=== PATIENT | female | born 1965 | race Caucasian/White ===

== ENCOUNTER 2022-09-16 10:17 | Inpatient (IN) | payer MEDICARE, MEDICAID ==
[~2022-09-16] VITALS: Ht 157.5 cm; Wt 182.0 kg
[~2022-09-16 10:17] MED LIST: ALLEGRA ALLERGY60 MG PO; CIPROFLOXACIN500 MG PO; LISINOPRIL20 MG PO
[2022-09-16] MEDS ORDERED: VENTOLIN HFA18 GM INH (14:45)
[2022-09-16] MEDS ORDERED: WOMEN'S DAILY1 EACH PO (14:46)
[2022-09-16] MEDS ORDERED: MAGOX 400400 MG PO (14:46)
[2022-09-16] MEDS ORDERED: FIBER0.52 GM PO (14:47)
[2022-09-16] MEDS ORDERED: BLACK ELDERBER1 EACH PO (14:47)
[2022-09-16] MEDS ORDERED: CRANBERRY500 M3 PO (14:48)
--- NOTE | 2022-09-16 15:15 | NUR ---
BEDSIDE REPORT RECEIVED, CARE OF PT ASSUMED AT THIS TIME. PT MOVED OVER FROM STRETCHER TO BED WITH USE OF HOVER ROME AND FOUR NURSE ASSIST. PT HEART RATE UP INTO THE 140S WITH ACTIVITY. PT SKIN CLEAN DRY AND INTACT. LYMPHEDEMA TO LOWER EXTREMITIES NOTED. PT ALSO HAS 2+ PITTING PEDAL EDEMA. SKIN UNDER FOLDS CLEAN DRY AND INTACT. LUNGS SOUND CLEAR THROUGHOUT. PLAN OF CARE FOR DAY ESTABLISHED. CALL LIGHT [facility] REH[facility]. WILL CONTINUE TO MONITOR.
--- NOTE | 2022-09-16 15:38 | NUR ---
CASHIER AND WAITER/WAITRESS IN ROOM AT THIS TIME PERFORMING ECHOCARDIOGRAM. SISTER AT BEDSIDE. IV DILTAZEM INFUSING (SEE FLOWSHEET). CALL LIGHT WITHIN REACH. WILL CONTINUE TO MONITOR.
--- NOTE | 2022-09-16 15:51 | NUR ---
DILTAZEM DRIP INCREASED TO 10 MG/HR TO MAINTAIN HEART RATE LESS THAN 100 (SEE EMAR).
--- NOTE | 2022-09-16 16:16 | NUR ---
PT EATING SANDWHICH AND REPORTS NAUSEA. PT STATES THAT THE OPENING CREATED FROM GASTRIC BIPASS SURGERY IS TOO SMALL AND SHE OFTEN GETS NAUSEATED WHEN SHE EATS TOO QUICKLY. DENIES NEED FOR PAIN MEDICATION AT THIS TIME.
--- NOTE | 2022-09-16 17:30 | NUR ---
PT INCONTINENT OF URINE. PURWICK NOT WORKING. PERICARE COMPLETED. PT HEART RATE UP INTO THE 140S WITH ACTIVITY IN THE BED. DILTAZEM DRIP INCREASED TO 15 MG/HR. DR HARRISON UPDATED. ORDER FOR HARRINGTON CATHETER RECEIVED.
--- NOTE | 2022-09-16 19:12 | NUR ---
PT MOVED FROM REGULAR BED TO BARIATRIC BED. PT ABLE TO STAND WITH STANDY BY ASSIST AND CANE. PT TRANSFERED PT HEART RATE IN THE 130-140 WITH ACTIVITY AND RESPIRATIONS IN THE MID 30S AND PT VISIBLY SHORT OF BREATH. PT NOW RESTING IN BARIATRIC BED. HEART RATE IN THE 80S. PT DENIES PAIN. CALL LIGHT WITHIN REACH AND PT'S NIECE REMAINS AT BEDSIDE.
--- NOTE | 2022-09-16 19:17 | EKG ---
[facility] [address] [place], [place] [address] Signed Atrial flutter with 2:1 AV conduction Minimal voltage criteria for LVH, may be normal variant ( Abdiel product ) Nonspecific ST abnormality Abnormal ECG No previous ECGs available Confirmed by RENARD HARRISON MD ([id number]) on 09/16/2022 7:16:59 PM Electronically Signed By: RENARD HARRISON MD 09/16/221916 PATIENT NAME: CORRY URIBE Electrocardiogram DATE OF : 67 PHYSICIAN: RENARD HARRISON MD REPORT #: [id number] REPORT IS CONFIDENTIAL AND NOT TO BE RELEASED WITHOUT AUTHORIZATION
--- NOTE | 2022-09-16 20:00 | NUR ---
Beside report received from outgoing nurse, NATACHA Mejia. Initial assessment performed with no critical measures necessary. All vital signs stable with Cardizem drip infusing via PIV at 15 mg/hr. No indications or complaints of respiratory distress or fever. Patient does complain of headache and right leg pain. Will administer pain medication with nighttime meds and continue to monitor.
--- NOTE | 2022-09-16 22:00 | NUR ---
Patient says that headache has been resolved and she has minimal leg pain. Cardizem drip titrated down to 10 mg/hr. All vital signs stable.
--- NOTE | 2022-09-17 | NUR ---
Patient reassessment performed with no acute changes since previous assessment unless noted. All vital signs stable with no indications or complaints of respiratory distess, fever or pain. Patient does complain of not being able to rest. Cardizem drip titrated down to 7.5 mg/hr. Will continue to monitor.
--- NOTE | 2022-09-17 02:30 | NUR ---
Patient administered tylenol for complaints of headache along with a one-time dose of PO ativan to help her sleep. All vital signs stable with Cardizem drip titrated down to 5 mg/hr.
--- NOTE | 2022-09-17 04:00 | NUR ---
Repeat assessment performed with no acute changes since initial assessment unless noted. All vital signs stable with no indications or complaints of respiratory distress, fever or pain. Cardizem drip titrated down to 2.5 mg/hr.
--- NOTE | 2022-09-17 06:00 | NUR ---
Patient resting comfortably with Cardizem drip infusing at 2.5 mg/hr. All vital signs stable with no indications of respiratory distress, fever or pain.
--- NOTE | 2022-09-17 07:25 | NUR ---
RECEIVED REPORT FROM ANTONIO MANZANO. ASSUMING CARE OF PT. PT RESTING IN BED, CALL LIGHT WITHIN REACH. PT ON BARIATRIC BED. DILTIAZEM DRIP AT 2.5 IN LEFT AC IV. RAC IV SALINE LOCKED. PT REPOSITIONED UP IN BED FOR COMFORT. VS OBTAINED AND INTAKE/OUTPUT COLLECTED.
--- NOTE | 2022-09-17 07:53 | NUR ---
PT COMPLAINT OF NAUSEA AND HEADACHE. MEDICATION PROVIDED.
--- NOTE | 2022-09-17 08:40 | NUR ---
DILTIAZEM DRIP TRITRATED UP DUE TO PT HR 136 WHILE RESTING IN BED.
--- NOTE | 2022-09-17 10:06 | NUR ---
PT RESTING IN BED VISITING WITH FATHER. PT DENIES PAIN OR DISCOMFORT. CARDIAC MEDICATION GIVEN DUE TO ELEVATED HR.
--- NOTE | 2022-09-17 10:55 | NUR ---
INTO SEE PATIENT. PATIENT LIVES IN A HOME IN [place]. SHE IS CURRENTLY BEEN LIVING ALONE AND CARING FOR HERSELF. HER SISTER SHAMEKA IS AVAILABLE TO ASSIST HER IF NEEDED. PATIENT STATES SHE DOES NOT DRIVE, SHE USES THE WC [place] IF HER SISTER IS UNAVAILABLE TO TRANSPORT HER. PATIENT HAS A WALKER, CANE AND WC AT HOME. SHE NOTES SHE MOSTLY USES HER CANE FOR MOBILITY. SHE STATES SHE IS ABLE TO MOVE AROUND HER HOME AND IS ABLE TO TAKE CARE OF HERSELF, BUT DOES NOT LEAVE HER HOME OFTEN. PATIENT IS ESTABLISHED WITH DR. LIU, BUT HAS NOT SEEN HIM IN SOMETIME. DISCUSSED RESOURCES THAT WOULD BE HELPFUL TO PATIENT. AVISED THAT SHE HAS ACCESS TO FREE TRANSPORTATION IT CAN BE EXPENSIVE TO PAY FOR THE WC [place]. PATIENT IS INTERESTED IN HOME HEALTHER SERVICES WHEN DISCHARGE. DISCUSSED HOME HEALTH FOR PT AND FPC IF NEEDED. PROVIDED INFORMATION FOR [facility] AND ENCOURAGED THE PATIENT TO CALL TO REQUEST SERVICES. PATIENT ALSO PROVIDED INFORMATION FOR MEALS ON WHEELS [employer]IA [employer] WHICH PATIENT FEELS MAY BE HELPFUL. NO CONCERNS FROM THE PATIENT REGARDING DISCHARGE AT THIS TIME, WILL CONTINUE TO CHECK IN WITH PATIENT DURING HER VISIT.
--- NOTE | 2022-09-17 11:39 | NUR ---
PT DILTIAZEM DRIP PLACED ON STAND BY, PT HR 69.
--- NOTE | 2022-09-17 13:17 | NUR ---
PT RESTING IN BED PLAYING ON TABLET. CALL LIGHT WITHIN REACH, BEDRAIL UP FOR SAFETY AND PT BELONGINGS AT BEDSIDE.
--- NOTE | 2022-09-17 14:30 | NUR ---
PT RESTING IN BED WITH EYES CLOSED, RESPIRATIONS EVEN AND UNLABORED. BLANKET COVERING PT. PT HAS CALL LIGHT WITHIN REACH AND BEDRAILS UP FOR SAFETY.
[2022-09-17] MEDS ORDERED: ADULT LOW DOSE81 MG PO (15:29)
[2022-09-17] MEDS ORDERED: ALEVE220 MG PO (15:29)
[2022-09-17] MEDS ORDERED: IBU-200200 MG PO (15:29)
--- NOTE | 2022-09-17 15:31 | NUR ---
MED REC COMPLETE
--- NOTE | 2022-09-17 16:20 | NUR ---
IN ROOM TO CHECK ON PT, PT COMPLAINT OF HEADACHE. MEDICATION PROVIDED. PT SISTER AT BEDSIDE. PT TALKING AND LAUGHING WITH FAMILY. AWARE OF WAIT FOR DINNER. DENIES FURTHER NEEDS AT THIS TIME.
--- NOTE | 2022-09-17 18:37 | NUR ---
PT ARRIVED TO MEDICAL FLOOR ROOM 125 VIA BED. PT IS ALERT AND ORIENTED. VITALSS TAKEN AND STABLE. PT REPORTS CHRONIC HEADACHE AT 09/15. TYLENL GIVEN BEFORE TRANSFER. CALL LIGHT IN REACH. BED NOT WORKING. CALL MADE TO RAYRAY
--- NOTE | 2022-09-17 19:15 | NUR ---
RECEIVED REPORT FROM AJ MANZANO. PT LAYING IN ARJO BED W/LEE MANZANO DROPHAMMER OPERATOR AT BEDSIDE ON PHONE W/Royal [place] TECH REP. UNABLE TO TROUBLESHOOT BED AT THIS TIME, PT 2PA W/FWW TO RECLINER TO BE CHANGED TO REGULAR FLOOR BED. TOLERATED WELL AND HR MAX WAS 130 AT THIS TIME. BACKSIDE IS C/D/I, NO SIGNS OF SKIN BREAKDOWN AT THIS TIME. CALL LIGHT WITHIN REACH, SISTER AT BEDSIDE, NO FURTHER NEEDS AT THIS TIME.
--- NOTE | 2022-09-17 22:09 | NUR ---
IN PT ROOM FOR ASSESSMENT, VS, AND I/O'S. PT RESTING IN BED. PT REPORTS PAIN OF 4/10 HEADACHE AT THIS TIME, PRN TYLENOL GIVEN. PT STATES UNEASY FEELING BUT NOT QUITE NAUSEA AT THIS TIME, NO NEED FOR PRN ZOFRAN. PT ON TELE AND PT FLUCTUATES BETWEEN REGULAR AND AFIB RHYTHM, RATE 70-80'S AT REST. PT STATES HOSPITAL BED FEELS MUCH BETTER ON KNEES AND NO KNEE PAIN WHILE IN THIS BED. LUNG SOUNDS ARE CLEAR THROUGHOUT, PULSES PRESENT THROUGHOUT (IRREGULAR), ACTIVE BOWEL TONES X4. HARRINGTON IN PLACE AND DRAINING TO GRAVITY, CARE PERFORMED. PT REPORTS NO DIZZINESS, N/T, SOB AT THIS TIME. REDNESS/DRY SKIN ON RT CALF, REST IS C/D/I, NO SIGN OF BREAKDOWN. CALL LIGHT WITHIN REACH, NO FURTHER NEEDS AT THIS TIME.
--- NOTE | 2022-09-18 01:10 | NUR ---
PT RESTING W/EYES CLOSED. RESPIRATIONS ARE EVEN AND UNLABORED, NO SIGNS OF DISTRESS. CALL LIGHT WITHIN REACH. PT APPEARS COMFORTABLE AT THIS TIME.
--- NOTE | 2022-09-18 02:50 | NUR ---
IN PT ROOM FOR LIFTER/DRIVER AND ASSESSMENT. PT REPORTS NAUSEA AT THIS TIME. PT IS ON TELE AND RATE AT THIS TIME IS SINUS RHYTHM W/HR IN LOW 90'S. PT IS A&O X4. PT REPORTS MINOR HEADACHE AT THIS TIME. PRN GIVEN FOR NAUSEA. NO ACUTE CHANGES FROM PREVIOUS ASSESSMENT. 10 MIN POST PRN ZOFRAN PT REPORTS NO NAUSEA AND STATES SHE IS GOING TO TRY AND GET SOME SLEEP. CALL LIGHT WITHIN REACH, NO FURTHER NEEDS AT THIS TIME. HARRINGTON DRAINING TO GRAVITY.
--- NOTE | 2022-09-18 05:00 | NUR ---
PT RESTING W/EYES CLOSED. RESPIRATIONS ARE EVEN AND UNLABORED, NO SIGNS OF DISTRESS. TELE SHOWS HR 70-80'S AT THIS TIME, PT IN AFIB RHYTHM AT THIS TIME. CALL LIGHT WITHIN REACH. HARRINGTON DRAINING TO GRAVITY.
--- NOTE | 2022-09-18 06:16 | NUR ---
IN PT ROOM D/T NAUSEA AND HEADACHE. PT REPORTS 6/10 HEADACHE PAIN, PRN TYLENOL GIVEN. PT REPORTS NAUSEA BUT STATES MANAGEABLE AT THIS TIME. CALL LIGHT WITHIN REACH, NO FURTHER NEEDS AT THIS TIME.
--- NOTE | 2022-09-18 06:25 | NUR ---
IN PT ROOM. PT WILLING TO GET OUT OF BED TO CHAIR. NEW CHAIR BROUGHT IN ROOM. PT ASSISTED OUT OF BED AND UP TO EDGE OF CHAIR 1 PA W FWW. THIS MOVEMENT WAS VERY HARD FOR PT TO ACCOMPLISH, BUT THE PT WAS NOT ALLOWING MUCH ASSISTANCE. RN IN ROOM TO HELP ASSIST PT BACK TO BED PT IS NO COMFORTABLE IN THE CHAIR. REFINERY PIPELINE OPERATOR ALSO NOTIFIED TO COME HELP WE ARE NOT ABLE TO PROVIDE ENOUGH ASSISTANCE FOR THE PT. PT WOULDN'T ALLOW US TO HELP MUCH, PT NOW BACK IN BED. ICE WATER REFRESHED. RN IN ROOM TO ASSIST W CATHETER, NO FURTHER NEEDS. CALL LIGHT WITHIN REACH
--- NOTE | 2022-09-18 06:50 | NUR ---
IN PT ROOM D/T HR FLUCTUATING BETWEEN 115-133. PT SITTING UP IN CHAIR AT THIS TIME. THIS RN, SCRIBING MACHINE OPERATOR, AND FAMILY HELPER ASSISTED PT BACK TO BED. PT SUSTAINED HR AROUND 133-135, PT REPORTS HEART FLUTTERING AND RACING SENSATION AT THIS TIME IN CHEST. PRN METOPROLOL GIVEN AFTER W/CONSULTATION OF SCRIBING MACHINE OPERATORNATAHCA GAN. PT NOW RESTING IN BED W/LAB IN ROOM FOR DRAW. CALL LIGHT WITHIN REACH, NO FURTHER NEEDS AT THIS TIME.
--- NOTE | 2022-09-18 07:30 | NUR ---
REPORT RECEIVED FROM SYDNEY MANZANO, ALL QUESTIONS ANSWERED. PT RESTING QUIETLY IN BED WITH EYES CLOSED RESPIRATIONS EVEN AND UNLABORED. CALL LIGHT IN REACH.
--- NOTE | 2022-09-18 10:36 | NUR ---
PT UP WALKING WITH PHYSICAL THERAPY, HEART RATE 144. PT BACK TO BED, HEART RATE SUSTAINING 130s-140. BP 131/[address] HARRISON, VERBAL ORDER TO GIVEN FOR PRN DOSE OF METOPROLOL. PT IN BED, STATES SHE CAN FEEL HER HEART "POUNDING" OTHERWISE DENIES DIZZINESS OR LIGHT HEADEDNESS. PT VISITING WITH FAMILY. PRN METOPROLOL ADMINISTERED.
--- NOTE | 2022-09-18 14:40 | NUR ---
AFTERNOON ASSESSMENT COMPLETE. NO CHANGES FROM MORNING ASSESSMENT. PT DENIES NEEDS AT THIS TIME. CALL LIGHT IN REACH, FAMILY AT BEDSIDE.
--- NOTE | 2022-09-18 16:20 | NUR ---
PT C/O HEADACHE, GIVEN PRN TYLENOL. DENIES FURTHER NEEDS AT THIS TIME. CALL LIGHT IN REACH.
--- NOTE | 2022-09-18 18:28 | NUR ---
PT UP TO COMMODE WITH ONE PERSON ASSIST AND FWW, HEART RATE 130. PT BACK TO BED, PT C/O DIZZINESS THAT RESOLVED WITH REST. HEART RATE TO 80-90S WITH REST.
--- NOTE | 2022-09-18 20:01 | NUR ---
REC'D BEDSIDE REPORT FROM DAY NURSE. PT AWAKE, SITTING UP IN BED. AOX4. NAD, NO C/O. WILL CONTINUE TO MONITOR AND FOLLOW POC.
--- NOTE | 2022-09-19 06:27 | NUR ---
PT IN BED. VITALS AND IS AND OS COMPLETE. PT DECLINED ANY NEEDS AT THIS TIME. CALL LIGHT WITHIN REACH
--- NOTE | 2022-09-19 07:17 | NUR ---
PT WITH NO ACUTE OVERNIGHT EVENTS. PT HEART RATE WELL-CONTROLLED WITH CURRENT REGIMEN. PT WITH NO C/O. VSS. BEDSIDE HANDOFF REPORT GIVEN TO DAY NURSE.
--- NOTE | 2022-09-19 07:24 | NUR ---
REPORT RECEIVED FROM ELVIA MANZANO, ALL QUESTIONS ANSWERED. PT LYING AWAKE IN BED. C/O DIZZINESS AND HEADACHE. BP 137/84 HEART RATE 77. PT GIVEN PRN TYLENOL. DENIES FURTHER NEEDS AT THIS TIME. CALL LIGHT IN REACH.
--- NOTE | 2022-09-19 09:56 | NUR ---
PT IN BED, VITALS AND IS AND OS COMPLETE. HARRINGTON EMPTIED. NO FURTHER NEEDS. CALL LIGHT WITHIN REACH
--- NOTE | 2022-09-19 10:44 | NUR ---
IN ROOM FOR ROUNDING, PT STATES "THE ROOM IS SPINNING, IM HOT AND I FEEL NAUSEOUS AND HEAVY" PT BP 126/80, HEART RATE 68. PT REQUESTS PRN CAROL, SEE EMAR.
--- NOTE | 2022-09-19 11:55 | NUR ---
PT UP TO COMMODE AND BACK TO BED. HEART RATE UP TO 128. PT DENIES DIZZINESS. CALL LIGHT IN REACH.
--- NOTE | 2022-09-19 14:21 | NUR ---
pt in bed. vitals and is and os complete. pt declined restroom needs. no further needs at this time. call light within reach
--- NOTE | 2022-09-19 19:43 | NUR ---
REPORT RECEIVED FROM DAY SHIFT RN. PT LYING IN BED ALERT AND ORIENTED. DENIES NEEDS. WHITE BOARD UPDATED. CALL LIGHT IN REACH.
--- NOTE | 2022-09-19 20:30 | NUR ---
EVENING ASSESSMENT COMPLETE. SCHEDULED MEDS ADMIN PER EMAR. PT REPORTS 5/10 HEADACHE PAIN AND NAUSEA. PRN FOR PAIN AND N/V ADMIN PER EMAR. TELE #[address] HR IRREGULAR. RATE 60'S AT REST. PT DENIES QUESTIONS OR CONCERNS. CALL LIGHT IN REACH.
--- NOTE | 2022-09-19 23:30 | NUR ---
PT RESTING IN BED WITH EYES CLOSED. RESPIRATIONS EVEN. CALL LIGHT IN REACH.
--- NOTE | 2022-09-19 23:50 | NUR ---
PT UP TO BR AND BACK TO BED. HR UP TO 130 WITH ACTIVITY. ICE WATER PROVIDED. CALL LIGHT IN REACH.
--- NOTE | 2022-09-20 01:48 | NUR ---
SCHEDULED MEDS ADMIN. PT DENIES DIZZINESS. REPORTS HEADACHE PAIN TOLERABLE. SLIGHTLY NAUSEOUS BUT DECLINES PRN FOR N/V WHEN OFFERED. NO NEEDS AT THIS TIME. CALL LIGHT IN REACH.
--- NOTE | 2022-09-20 05:20 | NUR ---
PT UP TO BR WITH FWW AND SBA TO VOID. BACK TO BED, JEY WELL. HR UP TO 130. PT DENIES DIZZINESS WITH ACTIVITY. VS AND I&O COMPLETE. PT DENIES NEEDS. CALL LIGHT IN REACH.
--- NOTE | 2022-09-20 07:30 | NUR ---
report from kwame rn, pt resting eyes closed.call light in reach.
--- NOTE | 2022-09-20 08:40 | NUR ---
PT IN BED, REPORTS SHE WANTS TO LEAVE TODAY FOR HOME, WILL NEED HER SISTER TO GET HER WC AND THEN SHE NEEDS A WC VAN RIDE TO GET HOME TO PAPER CUP MACHINE TENDER [place] - NOTE TO DR AND INTERNAL CONTROL SPECIALIST AWARE. ICE TEA BREWED AND PROVIDED TO PT - POSSIBLE CAFFINE HEADACHE - HOPING THIS COMFORTS HER. HR IS IN 70'S AT REST - MEDS GIVEN. CALL LIGHT IN REACH.
--- NOTE | 2022-09-20 09:55 | NUR ---
PT AMB WITH PHYSICAL THERAPY - CALLED CCU TO NOTIFY OF TELE POSSIBLE INCREASE IN HR - 102 BEATS/MIN CURRENTLY. IV ON R ARM WAS LOOSE AND REMOVED INTACT.
--- NOTE | 2022-09-20 12:53 | NUR ---
pt declines needs, waiting for wants to go home, 50% of lunch intake. reading book.
[2022-09-20] MEDS ORDERED: METOPROLOL SUC100 MG PO (13:20)
[2022-09-20] MEDS ORDERED: DILTIAZEM ER300 MG PO (13:20)
[2022-09-20] MEDS ORDERED: ONDANSETRON HCL4 MG PO (13:21)
== END 2022-09-20 14:30 | disposition home or self-care (01) | DRG 309 ==
LOC: ED 10:17 → MS 14:19 → CCU 14:19 → MS 09-17 18:25
PROVIDERS: ADMIT Internal Medicine; ATTEND Internal Medicine
DX: I48.3 Typical atrial flutter (principal); Z68.45 Body mass index [BMI] 70 or greater, adult; Z20.822 Contact with and (suspected) exposure to COVID-19; E66.01 Morbid (severe) obesity due to excess calories; G47.33 Obstructive sleep apnea (adult) (pediatric); I89.0 Lymphedema, not elsewhere classified; I10 Essential (primary) hypertension; H81.10 Benign paroxysmal vertigo, unspecified ear; Z98.84 Bariatric surgery status; Z88.0 Allergy status to penicillin; Z79.82 Long term (current) use of aspirin; Z79.899 Other long term (current) drug therapy
CPT/HCPCS: 36415; 71045; 71260; 80048; 80053; 83735; 84443; 84484; 85025; 93306; 94760; A9270; A9270-GY; C9803; J1650; J2405; U0003